=== PATIENT | male | born 1950 | race Caucasian/White ===

== ENCOUNTER 2023-12-27 11:10 | Outpatient (CLI) | payer MEDICARE, OTHER, SELFPAY ==
[2023-12-27 11:56] LABS: Basophils % 0.4 % (0.1-2.0); Eosinophils # 0.1 K/mm3 (0.0-0.4); Eosinophils % 2.2 % (0.1-12.0); Hematocrit 31.5 % (42.0-52.0); Hemoglobin 10.3 g/dL (14.1-18.0); Lymphocytes # 1.7 K/mm3 (0.7-4.5); Lymphocytes % 50.4 % (10-50); Mean Corpuscular HGB Conc 32.7 g/dL (31.8-35.4); Mean Corpuscular Hemoglobin 34.6 pg (27.0-31.2); Mean Corpuscular Volume 105.9 fl (80-94); Mean Platelet Volume 7.3 fl (7.4-10.4); Monocytes # 0.6 K/mm3 (0.1-1.0); Monocytes % 17.9 % (1.7-9.3); Neutrophils % 29.2 % (37.0-80.0); Platelet Count 111 K/mm3 (142-424); Red Blood Count 2.97 M/mm3 (4.60-6.20); Red Cell Distribution Width 15.6 % (11.5-17.5); Reticulocyte % (Auto) 1.2 % (0.9-3.2); White Blood Count 3.3 K/mm3 (4.8-10.8)
[2023-12-27 12:09] LABS: MANUAL DIFFERENTIAL MANUAL DIFFERENTIAL (MANUAL DIFF)
[2023-12-27 12:22] LABS: Chloride 109 mmol/L (98-107); Potassium 5.1 mmoL/L (3.5-5.1); Sodium 139 mmol/L (136-145)
[2023-12-27 12:25] LABS: Alanine Aminotransferase 17 U/L (12-78); Albumin/Globulin Ratio 1.5 (1.1-1.8); Alkaline Phosphatase 72 U/L (38-126); Anion Gap 7.1 mEq/L (5-15); Aspartate Amino Transferase 21 U/L (17-59); Bilirubin,Total 0.6 mg/dl (0.2-1.3); Blood Urea Nitrogen 17 mg/dl (9-20); Carbon Dioxide 28 mmol/L (22.0-30.0); Estimated Glomerular Filt Rate 59 ml/min (>60); GFR (African American) 72 ML/MIN (>60); Globulin 2.6 g/dL (1.3-3.2); Iron 94 ug/dL (49-181); Total Protein,Serum 6.6 g/dl (6.3-8.2)
[2023-12-27 12:26] LABS: Calcium 9.7 mg/dl (8.4-10.2); Glucose 99 mg/dl (74-100)
[2023-12-27 12:34] LABS: Total Iron Binding Capacity 285 ug/dL (261-462)
[2023-12-27 12:44] LABS: Lymphocytes % 56 % (10-50); Macrocytosis 2+; Monocytes % 17 % (2-9); Neutrophils % 20 % (42-76); Nucleated Red Blood Cells 1; Platelet Estimate Slight Decrease; Total Cells Counted 100
[2023-12-27 12:59] LABS: Ferritin 252 ng/ml (17.9-464)
[2023-12-27 13:55] LABS: Lactate Dehydrogenase 243 U/L (313-618)
[2023-12-27 14:01] LABS: Thyroid Stimulating Hormone 1.24 uIU/mL (0.465-4.68)
[2023-12-27 15:03] LABS: Vitamin B12 396 pg/mL (239-931)
[2023-12-28 13:49] LABS: Haptoglobin 289 mg/dL (34-355)
[2023-12-29 11:17] LABS: Peripheral Smear Review Scanned Result
== END 2023-12-27 23:59 | disposition home or self-care (01) ==
LOC: LAB 11:13
PROVIDERS: PCP Family Medicine; Visit Provider Internal Medicine Medical Oncology
DX: D50.9 Iron deficiency anemia, unspecified (principal); D64.9 Anemia, unspecified; D72.819 Decreased white blood cell count, unspecified
CPT/HCPCS: 36415; 80053; 82607; 82728; 82746; 83010; 83540; 83550; 83615; 84443; 85007; 85025; 85027; 85044; 86880